=== PATIENT | female | born 1960 | race Caucasian/White ===

== ENCOUNTER 2019-04-06 18:50 | Emergency (ER) | payer OTHER ==
[~2019-04-06] VITALS: Ht 160 cm; Wt 86.2 kg
[~2019-04-06 18:50] MED LIST: AMBEREN; CALCIUM OYSTER500 MG; LORTAB 5 MG/5001 TA1; SYNTHROID100 MCG
[2019-04-06] MEDS ORDERED: CARTIA XT120 M1 PO (19:01)
[2019-04-06] MEDS ORDERED: NORCO 5-325 TA1 EAC1 PO (20:13)
[2019-04-06] MEDS ORDERED: FLEXERIL PO (20:13)
[2019-04-06 20:24] VITALS: BP 132/82
== END 2019-04-06 20:24 | disposition home or self-care (01) ==
LOC: M.ERS 18:50
DX: S39.012A Strain of muscle, fascia and tendon of lower back, initial encounter (principal); S80.02XA Contusion of left knee, initial encounter; I48.91 Unspecified atrial fibrillation; V89.2XXA Person injured in unspecified motor-vehicle accident, traffic, initial encounter; Y93.89 Activity, other specified; Y92.89 Other specified places as the place of occurrence of the external cause; Y99.8 Other external cause status

== ENCOUNTER 2020-03-06 11:02 | Emergency (ER) | payer OTHER ==
[~2020-03-06] VITALS: Ht 160 cm; Wt 77.1 kg
[~2020-03-06 11:02] MED LIST changes: +CARTIA XT120 M1 PO; +FLEXERIL PO; +NORCO 5-325 TA1 EAC1 PO
[2020-03-06 11:41] LABS: ABSOLUTE LYMPHOCYTES 1.6 thou/uL (0.8-5.3); ABSOLUTE MONOCYTES 0.8 thou/uL (0.0-1.2); ABSOLUTE NEUTROPHILS 3.6 thou/uL (1.6-8.1); BASOPHILS 0.8 %; EOSINOPHILS 0.3 %; HEMATOCRIT 41.4 % (37.0-47.0); HEMOGLOBIN 13.9 gm/dL (12.0-15.0); LYMPHOCYTES 26.5 %; MCH 29.3 pg (26.0-34.0); MCHC 33.6 g/dL (28.0-37.0); MCV 87.3 fL (80.0-100.0); MONOCYTES 12.6 %; MPV 8.4 fl. (7.2-11.1); NUCLEATED RBCS 0 /100WBC; PLATELET COUNT* 207 thou/uL (150-400); POLYS 59.8 %; RBC 4.75 mil/uL (4.20-5.00)
[2020-03-06 11:53] LABS: ANION GAP 10 mmol/L (7-16); BUN 8 mg/dL (7-18); CALCIUM 8.2 mg/dL (8.5-10.1); CHLORIDE 103 mmol/L (98-107); CO2 24 mmol/L (21-32); CREATININE 0.9 mg/dL (0.6-1.3); GLUCOSE 109 mg/dL (70-99); POTASSIUM 3.8 mmol/L (3.5-5.1); SODIUM 137 mmol/L (136-145)
[2020-03-06 11:55] LABS: APTT 28.1 Seconds (25.0-31.3); INR 1.1; PROTIME 11.2 Seconds (9.20-11.50)
[2020-03-06 12:08] LABS: ALBUMIN 3.6 g/dL (3.4-5.0); ALKALINE PHOSPHATASE 84 U/L (46-116); CK-MB MASS < 0.5 ng/mL (<0.5-3.6); LIPASE 81 U/L (73-393); MAGNESIUM 2.2 mg/dL (1.8-2.4); NT-PRO BRAIN NAT PEPTIDE 222 pg/mL (<300); SGOT 29 U/L (15-37); SGPT 35 U/L (30-65); TOTAL BILIRUBIN 0.5 mg/dL (<0.1-1.0); TOTAL PROTEIN 8.3 g/dL (6.4-8.2)
[2020-03-06] MEDS ORDERED: ZPAK PO (12:49)
[2020-03-06] MEDS ORDERED: VENTOLIN HFA 1818 GM INH (12:49)
[2020-03-06] MEDS ORDERED: PREDNISONE 20 M20 MG PO (12:49)
[2020-03-06 12:59] VITALS: BP 138/68
--- NOTE | 2020-03-06 17:00 | EKG ---
[place] [address] ELECTROCARDIOGRAM REPORT Name: ARY PIÑAENDOLYN Pierre Room: [facility]#: [id number] Admission: 03/06/20 Attend Phys: Discharge: Date of : 56 Date of Service: 03/06/20 1148 Report #: [id number] THIS REPORT FOR: //name// 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
== END 2020-03-06 13:00 | disposition home or self-care (01) ==
LOC: M.ERS 11:02
PROVIDERS: Family Medicine
DX: U07.1 COVID-19 (principal); G20 Parkinson's disease; I48.91 Unspecified atrial fibrillation; Z90.89 Acquired absence of other organs; Z79.899 Other long term (current) drug therapy

== ENCOUNTER 2020-04-05 01:37 | Inpatient (IN) | payer OTHER ==
[~2020-04-05] VITALS: Ht 160 cm; Wt 75.7 kg
--- NOTE | ~2020-04-05 | CON ---
[address] [address] CONSULTATION Name: MELINDA PIÑA Room: [address] IN M.R.#: [id number] Admission: 04/05/20 Attend Phys: Aimee Torres Discharge: Date of : 56 Report #: [id number] THIS REPORT FOR: cc: Daquan Acevedo MD, Gregory MD ~ Hossein Coleman MD DATE OF SERVICE: 04/05/2020 HISTORY OF PRESENT ILLNESS: This is a 59-year-old female patient who was evaluated by me for the possibility of TIA. The patient also has an underlying Parkinson's disease. The patient gives a history that she had an episode where she could not hear anything from the either ear for a very short period of time. Since then, she has returned back to her baseline. As far as Parkinson's disease is concerned, she said she follows up with a neurologist, Dr. Rodriguez. She takes medication. Main problem is tremor. She did have palpitations at this time. She does have a history of paroxysmal atrial fibrillation, which is being addressed by Cardiology. She does have problem with the thyroid. Otherwise, 14-point review of systems was mostly unremarkable. PAST MEDICAL HISTORY: Positive for Parkinson's disease. FAMILY HISTORY: Unremarkable. SOCIAL HISTORY: She does not smoke or drink any alcohol. PHYSICAL EXAMINATION: NEUROLOGIC: Indicates she is alert, responsive, able to follow simple and complex command. Her speech, concentration, fund of knowledge and memory is at her baseline. Cranial nerve examinations appear unremarkable. She has mild tremor which is worse on the left side. Rest of the neuromuscular examination is unremarkable. There is no meningeal sign. There is no carotid bruit. She is reasonably well-developed individual. VITAL SIGNS: Indicate a blood pressure of 148/64, respirations 16, pulse is 64, temperature is 98.8. EXTREMITIES: Her pulses are palpable. CARDIAC: Heart looks unremarkable. LUNGS: No respiratory difficulty or rhonchi. NECK: No thyroid mass. No carotid bruit. HEENT: Her hearing and vision looks adequate. LABORATORY DATA: White count is 9.6. She did have a CT scan of the head done, which showed no acute process. She had a carotid [place] [address] CONSULTATION Name: MELINDA PIÑA Room: [address] IN [facility]#: [id number] Admission: 04/05/20 Attend Phys: Aimee Torres Discharge: Date of : 56 Report #: [id number] unremarkable. IMPRESSION: Difficult to tell about the patient's transient hearing loss on both sides was from. I agree with you for the possibility of transient ischemic attack need to be excluded. I recommended to the patient that she has MRI and MRA done to see if there is any evidence for prior transient ischemic attack or stroke or any recent stroke. Since she does have a history of paroxysmal atrial fibrillation that is important. However, she declined that. She is competent to make her decision and she understands why I am recommending it and the consequences of not doing it. However, presently she declined that. I asked her to think about it and if she decided to proceed with it, then MRI of the brain and MRA of the head can be done. To complete the workup for Parkinson's disease, she should follow up with her primary. I will discuss with you tomorrow and we will also talk to her tomorrow to see if she has changed her mind. Thank you very much for this referral. By: 31 48Hossein Coleman MD /nt
--- NOTE | ~2020-04-05 | CON ---
[address] [address] CONSULTATION Name: MELINDA PIÑA Room: [address] IN M.R.#: [id number] Admission: 04/05/20 Attend Phys: Aimee Torres Discharge: Date of : 56 Report #: [id number] THIS REPORT FOR: cc: Daquan Acevedo MD, Gregory MD ~ Terence Ennis MD DATE OF SERVICE: 04/05/2020 REQUESTING PHYSICIAN: Consult has been requested by Dr. Saldaña. INDICATION FOR CONSULTATION: Abnormal CT chest. HISTORY OF PRESENT ILLNESS: This is a 59-year-old female. She is a lifetime nonsmoker. The patient, however, has recently recovered from COVID-19 and she does have a history of parkinsonism as well as atrial fibrillation. To my knowledge, she is not on anticoagulation skilled nursing. At this time, the patient is admitted with palpitations. She also felt some chest pressure and dizziness at the time of palpitations occurred and did have some shortness of breath as well. All of these symptoms have essentially subsided by now, the patient does not have any fever or chills. There is no cough. There is no sputum production. She does not have any upper respiratory complaints. She does have some mild swelling of lower extremities, more on the left than the right. She has had varicose veins in the past. She does have disturbed sleep at night. She does snore at times. She sleeps both on her side as well as on her back. She does not persist, states that she is sleepy during the day, but she says that she is tired during the day. It appears likely to me that what she is describing as tiredness, is in fact sleepiness. She does need to move her legs to keep them comfortable in the evening. REVIEW OF SYSTEMS: The patient's review of systems for 12 points is negative except as mentioned above. PAST MEDICAL HISTORY: Atrial fibrillation, Parkinson's disease, left bundle branch block, status post thyroidectomy. The patient has just had an echocardiogram performed, which shows a left ventricular ejection fraction of 60-65% without elevation in right heart pressures, recent history of COVID-19 SOCIAL HISTORY: Lifetime nonsmoker. No known history of heavy alcohol use or illegal drug use. CURRENT MEDICATIONS: In [facility], reviewed. HOME MEDICATIONS: In [facility], [place] [address] CONSULTATION Name: MELINDA PIÑA Room: [address] IN [facility]#: [id number] Admission: 04/05/20 Attend Phys: Aimee Torres Discharge: Date of : 56 Report #: [id number] FAMILY HISTORY: No pertinent family history ALLERGIES: No known drug allergies. PHYSICAL EXAMINATION: GENERAL: She is alert, awake and oriented, does not appear to be in any distress. VITAL SIGNS: Has a pulse of 64 and a blood pressure of 148/64. She is saturating 98-100%. She is not on supplemental oxygen. Her respiratory rate was 16. She is afebrile with a temperature of 37.1. Body mass index is on the higher side, is mildly elevated to 29.8. HEENT: Head is normocephalic and atraumatic. Pupils are equal and reactive. There is no throat erythema. Airway is Mallampati 3. NECK: Does not show raised JVP, asymmetry, mass or lymph nodes. CHEST: Symmetrical expansion on inspection and palpation. On auscultation, chest is clear. HEART: Regular. There is no murmur. ABDOMEN: Soft and nontender. EXTREMITIES: Lower extremities show trace edema, which is somewhat more on the left side than the right. SKIN: However, is dry and intact. NEUROLOGICAL: Moves all extremities bilaterally equally and spontaneously with no focal deficit identified. LABORATORY DATA: The patient had a CTA chest performed today, which is in [facility] reviewed. CT head report is also reviewed. Chest x-ray is also reviewed. Lab work is in [facility] and this is also reviewed. ASSESSMENT AND PLAN: 1. Nodular mass/lung nodules, left upper lobe. There is a clustered nodular mass, which is seen in the left upper lobe. Interestingly, there are small areas of calcification in this as well. This are subcentimeter lung nodules adjacent to it also. At first glance, it appears likely to me that these findings are secondary to an old healed fungal infection. However, other granulomatous lung diseases as well as malignancies and autoimmune/connective tissue diseases can also lead to this picture and active fungal infection at this time can also lead to this finding. As the patient does not appear to be symptomatic from this, I recommend that we obtain a PET scan as soon as possible after her discharge as an outpatient, which could be scheduled at [facility]. If the report is sent to my office, I will be happy to review it and then I discuss with the patient further based on the PET scan results. We will decide regarding further workup. The patient likely will need serial CAT scan followup. [address] [address] CONSULTATION Name: MELINDA PIÑA Room: [address] IN [facility]#: [id number] Admission: 04/05/20 Attend Phys: Aimee Torres Discharge: Date of : 56 Report #: [id number] 2. Palpitation/history of atrial fibrillation. I would defer management to the Cardiology Service and primary service. I would, however, like to check a magnesium level and if it is low, I would recommend replacement. The patient appears to be well hydrated at this time. I would suggest discontinuing IV fluids soon. 3. Sleep disturbances/hypersomnia. I have suspicion that the patient has underlying obstructive sleep apnea. If the patient is interested, then I will be happy to arrange a sleep study for her. 4. Hiatal hernia. There is a significant sized hiatal hernia, which is an incidental finding on her CTA chest. This is noted that the patient currently is on a PPI. 5. Edema of lower extremities, only trace edema, but it is more on the left than the right. The patient reports that she has had varicose in the past, for which she had procedures performed. Therefore, I elected venous Dopplers. She has received 80 mg of Lovenox earlier today. In case the patient remains in the hospital tomorrow, then we will start prophylactic dose Lovenox. Thanks for this consultation. By: 1747 [id number] Ennis MD /codie
[~2020-04-05 01:37] MED LIST changes: +PREDNISONE 20 M20 MG PO; -SYNTHROID100 MCG; +SYNTHROID75 MCG PO; +VENTOLIN HFA 1818 GM INH; +ZPAK PO
[2020-04-05 01:49] VITALS: BP 129/85
[2020-04-05] MEDS ORDERED: LEVO-T75 MCG PO (01:57)
[2020-04-05] MEDS ORDERED: CARBIDOPA-LEVO1 EA10 PO (01:57)
[2020-04-05 01:59] LABS: ABSOLUTE BASOPHILS 0.1 thou/uL (0.0-0.2); ABSOLUTE EOSINOPHILS 0.3 thou/uL (0.0-0.7); ABSOLUTE LYMPHOCYTES 3.7 thou/uL (0.8-5.3); ABSOLUTE MONOCYTES 0.7 thou/uL (0.0-1.2); ABSOLUTE NEUTROPHILS 4.9 thou/uL (1.6-8.1); EOSINOPHILS 3.1 %; HEMATOCRIT 39.7 % (37.0-47.0); LYMPHOCYTES 38.2 %; MCHC 32.7 g/dL (28.0-37.0); MCV 88.7 fL (80.0-100.0); MONOCYTES 7.1 %; MPV 8.6 fl. (7.2-11.1); NUCLEATED RBCS 0 /100WBC; PLATELET COUNT* 249 thou/uL (150-400); POLYS 50.6 %; RBC 4.47 mil/uL (4.20-5.00); RDW-CV 14.3 % (10.5-14.5); WBC 9.6 thou/uL (4.0-11.0)
[2020-04-05 02:17] LABS: CALCIUM 9.1 mg/dL (8.5-10.1); CREATININE 1.1 mg/dL (0.6-1.3); POTASSIUM 3.6 mmol/L (3.5-5.1)
[2020-04-05 02:19] LABS: APTT 27.3 Seconds (25.0-31.3); PROTIME 11.1 Seconds (9.20-11.50)
[2020-04-05 02:43] LABS: ALBUMIN 3.7 g/dL (3.4-5.0); TOTAL BILIRUBIN 0.4 mg/dL (<0.1-1.0); TOTAL PROTEIN 7.5 g/dL (6.4-8.2)
[2020-04-05 09:30] VITALS: BP 130/47
[2020-04-05 11:51] LABS: ALBUMIN 3.4 g/dL (3.4-5.0); CALCIUM 8.8 mg/dL (8.5-10.1); CREATININE 0.9 mg/dL (0.6-1.3); POTASSIUM 3.9 mmol/L (3.5-5.1); TOTAL BILIRUBIN 0.4 mg/dL (<0.1-1.0); TOTAL PROTEIN 7.1 g/dL (6.4-8.2)
[2020-04-05 13:20] VITALS: BP 139/61
--- NOTE | 2020-04-05 13:30 | EKG ---
[place] [address] ELECTROCARDIOGRAM REPORT Name: AYANAMELINDA Pierre Room: [place] [address] ADM IN ..#: [id number] Admission: 04/05/20 Attend Phys: Filemon Galloway Discharge: Date of : 56 Date of Service: 04/05/20 0145 Report #: [id number] THIS REPORT FOR: //name// [facility] ED Test Date: 2020-04-05 Test Time: 01:45:45 Pat Name: MELINDA PIÑA Department: Room: [facility] Gender: F Medical Detail Representative: TANISHA : 1960 Requested By: Elly Randall Order Number: [id number] MD: Nilesh Adames Measurements Intervals [place] Rate: 89 P: [place]: QRS: -30 QRSD: 153 T: 110 QT: 398 QTc: 485 Interpretive Statements Sinus rhythm Left bundle branch block Compared to ECG 03/06/2020 11:48:37 No changes noteed Electronically Signed On 04-05-2020 13:30:38 HOT DIE PRESS OPERATOR by Nilesh Adames [email or web address] <ELECTRONICALLY SIGNED> By: Nilesh Adames MD, FACC 04/05/20 1330 0145 0145 Nilesh Adames MD, [facility] /EPI
[2020-04-05 14:50] VITALS: BP 139/61
[2020-04-05 15:05] VITALS: BP 148/64
[2020-04-05] MEDS ORDERED: ASA81BEC PO (15:44)
--- NOTE | 2020-04-05 16:23 | EKG ---
[place] [address] ELECTROCARDIOGRAM REPORT Name: AYANAMELINDA Pierre Room: [address] ADM IN .R.#: [id number] Admission: 04/05/20 Attend Phys: Filemon Galloway Discharge: Date of : 56 Date of Service: 04/05/20 0502 Report #: [id number] THIS REPORT FOR: //name// [facility] ED Test Date: 2020-04-05 Test Time: 05:02:34 Pat Name: MELINDA PIÑA Department: Room: [facility] Gender: F Cardiac Rehab Nurse: ISABEL : 1960 Requested By: Elly Randall Order Number: [id number] MD: Nilesh Adames Measurements Intervals [place] Rate: 59 P: [place]: QRS: -27 QRSD: 165 T: 62 QT: 461 QTc: 457 Interpretive Statements Sinus rhythm Left bundle branch block compared to ECG 04/05/2020 01:45:45 No significant changes noted Electronically Signed On 04-05-2020 16:23:27 PSYCHIATRIC SECRETARY by Nilesh Adames [email or web address] <ELECTRONICALLY SIGNED> By: Nilesh Adames MD, FACC 04/05/20 1623 0502 0502 Nilesh Adames MD, [facility] /EPI
--- NOTE | 2020-04-05 16:54 | 2DMMODE ---
[place] [address] 2 D/M-MODE ECHOCARDIOGRAM Name: ROBERT PIÑAN Pierre Room: [address] IN [facility]#: [id number] Admission: 04/05/20 Attend Phys: Filemon Galloway Discharge: Date of : 56 Date of Service: 04/05/20 1654 Report #: [id number] THIS REPORT FOR: cc: Daquan Acevedo MD, Gregory MD Liston, Michael J. MD [facility] ~ APPROVED REPORT Study performed: 04/05/2020 14:35:13 EXAM: Comprehensive 2D, Doppler, and color-flow Echocardiogram Patient Location: In-Patient Room #: er Status: routine BSA: 1.80 HR: 60 bpm BP: 130/47 mmHg Rhythm: NSR Other Information Study Quality: Good Indications CVA/TIA Echo Enhancing Agent Indication: Rule out Shunt Agent(s) / Amount(s) Used: Agitated Saline 10 cc 2D Dimensions IVSd: 9.46 (7-11mm) LVOT Diam: 19.46 (18-24mm) LVDd: 50.62 mm PWd: 8.16 (7-11mm) Ascending Ao: 30.75 (22-36mm) LVDs: 27.53 (25-40mm) Aortic Root: 28.78 mm Volumes Left Atrial Volume (Systole) LA ESV Index: 22.50 mL/m2 Aortic Valve AoV Peak Evelio.: 1.63 m/s AO Peak Gr.: 10.57 mmHg LVOT Max P.87 mmHg AO Mean Gr.: 5.09 mmHg LVOT Mean P[place]26 [place] [address] 2 D/M-MODE ECHOCARDIOGRAM Name: AYANAMELINDA Room: [address] IN ..#: [id number] Admission: 04/05/20 Attend Phys: Filemon Galloway Discharge: Date of : 56 Date of Service: 04/05/20 1654 Report #: [id number] LVOT Max V: 1.10 m/s AO V2 VTI: 34.69 cm LVOT Mean V: 0.69 m/s SRINIVAS (VTI): 2.30 cm2 LVOT V1 VTI: 26.87 cm Mitral Valve E/A Ratio: 0.78 MV Decel. Time: 221.20 ms MV E Max Evelio.: 0.74 m/s MV PHT: 64.15 ms MVA (PHT): 3.43 cm2 TDI E/Lateral E': 5.29 E/Medial E': 8.22 Medial E' Evelio.: 0.09 m/s Lateral E' Evelio.: 0.14 m/s Pulmonary Valve PV Peak Evelio.: 1.11 m/s PV Peak Gr.: 4.95 mmHg Tricuspid Valve RAP Estimate: 5.00 mmHg TR Peak Gr.: 23.35 mmHg RVSP: 28.00 mmHg PA Pressure: 28.00 mmHg Left Ventricle The left ventricle is normal size. There is normal LV segmental wall motion. There is normal left ventricular wall thickness. Left ventricular systolic function is normal. LVEF is 60-65%. Grade I - abnormal relaxation pattern. Right Ventricle The right ventricle is normal size. The right ventricular systolic function is normal. Atria The left atrium size is normal. The interatrial septum is intact with no evidence for an atrial septal defect. The right atrium size is normal. Aortic Valve The aortic valve is normal in structure. No aortic regurgitation is present. There is no aortic valvular stenosis. Mitral Valve The mitral valve is normal in structure. Mild mitral regurgitation. No evidence [place] [address] 2 D/M-MODE ECHOCARDIOGRAM Name: MELINDA PIÑA Room: [address] IN ..#: [id number] Admission: 04/05/20 Attend Phys: Filemon Galloway Discharge: Date of : 56 Date of Service: 04/05/20 1654 Report #: [id number] Tricuspid Valve The tricuspid valve is normal in structure. Mild tricuspid regurgitation. No pulmonary hypertension. Pulmonic Valve The pulmonary valve is normal in structure. There is no pulmonic valvular regurgitation. Great Vessels The aortic root is normal in size. IVC is normal in size and collapses >50% with inspiration. Pericardium There is no pericardial effusion. <Conclusion> The left ventricle is normal size. There is normal left ventricular wall thickness. Left ventricular systolic function is normal. LVEF is 60-65%. Grade I - abnormal relaxation pattern. The interatrial septum is intact with no evidence for an atrial septal defect. Mild mitral regurgitation. Mild tricuspid regurgitation. No pulmonary hypertension. IVC is normal in size and collapses >50% with inspiration. <ELECTRONICALLY SIGNED> By: Nilesh Adames MD, FACC 04/05/201653 53 53 Nilesh Adames MD, FACC /INF
[2020-04-05 20:00] VITALS: BP 153/65
[2020-04-06 00:05] VITALS: BP 136/59
[2020-04-06 02:06] LABS: GLYCOHEMOGLOBIN (HGB A1C) 5.5 % (4.8-5.6)
[2020-04-06 03:59] VITALS: BP 145/62
[2020-04-06 04:23] LABS: ABSOLUTE BASOPHILS 0.1 thou/uL (0.0-0.2); ABSOLUTE EOSINOPHILS 0.2 thou/uL (0.0-0.7); ABSOLUTE LYMPHOCYTES 2.6 thou/uL (0.8-5.3); ABSOLUTE MONOCYTES 0.6 thou/uL (0.0-1.2); ABSOLUTE NEUTROPHILS 3.5 thou/uL (1.6-8.1); BASOPHILS 0.8 %; EOSINOPHILS 3.4 %; HEMATOCRIT 33.7 % (37.0-47.0); HEMOGLOBIN 11.3 gm/dL (12.0-15.0); LYMPHOCYTES 37.5 %; MCH 29.3 pg (26.0-34.0); MCHC 33.6 g/dL (28.0-37.0); MONOCYTES 8.4 %; MPV 8.7 fl. (7.2-11.1); NUCLEATED RBCS 0 /100WBC; PLATELET COUNT* 212 thou/uL (150-400); POLYS 49.9 %; RBC 3.87 mil/uL (4.20-5.00); RDW-CV 14.4 % (10.5-14.5)
[2020-04-06 04:34] LABS: CALCIUM 8.6 mg/dL (8.5-10.1); CREATININE 0.8 mg/dL (0.6-1.3); POTASSIUM 3.7 mmol/L (3.5-5.1)
[2020-04-06 05:55] LABS: CHOLESTEROL 153 mg/dL (<200); HDL CHOLESTEROL 45 mg/dL (>40); LDL CHOLESTEROL 99 mg/dL (<100); SERUM ASSESSMENT Clear; TC:HDL 3.4 Ratio (Not establshd); TRIGLYCERIDE 49 mg/dL (<150); VLDL 10 mg/dL (<40)
[2020-04-06 09:19] VITALS: BP 136/59
[2020-04-06 11:20] VITALS: BP 136/59
== END 2020-04-06 12:37 | disposition home or self-care (01) | DRG 309 ==
LOC: M.ERS 01:37 → M.TBA-ER 05:42 → M.2W 15:10
PROVIDERS: Internal Medicine; Personal Emergency Response Attendant; ADMIT Internal Medicine; ATTEND Internal Medicine
DX: I48.0 Paroxysmal atrial fibrillation (principal); G45.9 Transient cerebral ischemic attack, unspecified; I48.92 Unspecified atrial flutter; E89.0 Postprocedural hypothyroidism; Z86.16 Personal history of COVID-19; R91.8 Other nonspecific abnormal finding of lung field; K44.9 Diaphragmatic hernia without obstruction or gangrene; G20 Parkinson's disease; Z20.822 Contact with and (suspected) exposure to COVID-19; Z79.82 Long term (current) use of aspirin; Z79.899 Other long term (current) drug therapy

== ENCOUNTER → 2020-05-31 | Outpatient (CLI) | payer OTHER ==
[~2020-05-31] MED LIST changes: +ASA81BEC PO; +CARBIDOPA-LEVO1 EA10 PO; +LEVO-T75 MCG PO
--- NOTE | 2020-06-25 16:02 | SLEEP ---
[address] [address] SLEEP STUDY REPORT Name: MELINDA PIÑA Room: [facility]#: [id number] Admission: 05/31/20 Attend Phys: Terence Ennis MD Discharge: Date of : 56 Report #: [id number] THIS REPORT FOR: cc: Daquan Acevedo MD, Gregory MD Pervez,Terence VARGAS ~ This study has been reviewed in its entirety by a board certified sleep specialist DATE OF SERVICE: 05/31/2020 HOME SLEEP STUDY INDICATION FOR SLEEP STUDY: Excessive daytime sleepiness. INTERPRETATION: Total duration of the study is 647 minutes. During this time duration, we recorded only rare sleep related respiratory events. These included 10 hypopneas in addition to 7 obstructive apneas. Overall, apnea-hypopnea index is 1.6, which is normal. Body position data indicates the patient was observed in the supine position for 323 minutes. The rest of the time, the patient was on the right side. There were only rare desaturations recorded. Overall, the patient only spent 0.2 minutes below an O2 saturation of 90%. Mean heart rate was on the lower side at 46. IMPRESSION: There are some rare sleep related respiratory events recorded with obstructive sleep apnea; however, was not detected during the sleep study. O2 saturation is also adequately maintained. The patient's mean heart rate is noted to be 46. RECOMMENDATIONS: I will plan to review further the patient's sleep complaints on her next office visit and then address accordingly. If suspicion of obstructive sleep apnea remains high, then I may later on consider an in-lab sleep study for further evaluation. Recommend avoiding driving or other activities requiring vigilance if drowsy. This entire sleep study was reviewed by board certified sleep physician. <ELECTRONICALLY SIGNED> By: Terence Ennis MD 06/25/20 1602 1843 [id number] Ennis MD /nt
== END ==
LOC: M.PUL 10:16
PROVIDERS: ATTEND Internal Medicine Critical Care Medicine
DX: G47.33 Obstructive sleep apnea (adult) (pediatric) (principal); G47.10 Hypersomnia, unspecified

== ENCOUNTER → 2020-09-20 | Outpatient (CLI) | payer OTHER | LOC: M.CT 10:34 | PROVIDERS: ATTEND Internal Medicine Critical Care Medicine | DX: R91.8 Other nonspecific abnormal finding of lung field (principal); M47.814 Spondylosis without myelopathy or radiculopathy, thoracic region ==